=== PATIENT | female | born 1995 ===

== ENCOUNTER → 2024-12-17 01:30 | Outpatient (REF) | payer BC, SELFPAY | LOC: CLAB 01:30 | PROVIDERS: ATTENDING PHYSICIAN Surgery | DX: K60.2 Anal fissure, unspecified (principal) | CPT/HCPCS: 88304 ==

== ENCOUNTER 2025-04-14 06:17 | Day surgery (SDC) | payer BC, SELFPAY ==
[2025-04-14 08:09] VITALS: BMI 29.2
[2025-04-14 08:10] VITALS: BP 131/90; BMI 29.2
[2025-04-14] MEDS: CELEBREX 200 MG PO (08:18)
[2025-04-14] MEDS: TYLENOL 1000 MG PO (08:18)
[2025-04-14] MEDS: NORMOSOL-R/PLASMALYTE-A 1000 IV (08:19)
[2025-04-14 09:55] VITALS: BP 102/55
[2025-04-14 10:00] VITALS: BP 98/60
--- NOTE | 2025-04-14 10:00 | W.IMMPOSTOP ---
Addendum entered and electronically signed by Ashok Soto MD 04/14/25 11:38:
patient and mother was updated in SDS
Original Note:
Surgical Immed Post Op Note
-
Primary Surgeon: Ashok Soto MD
Assisting Surgeon: None
Pre-op Diagnosis: Complex perianal fistula, anal fissure
Post-op Diagnosis: Right gluteal cyst
Procedure Performed: Exam under anesthesia, incision and debridement of right gluteal cyst
Anesthesia Type: Sedation with local
Specimen / Cultures: 1. fistula tract (debrided epithelioma of gluteal cyst) 2. External opening
Estimated Blood Loss: 10 mL
Complications: None
Operative Findings: Scarring noted in the posterior midline in the mid anal canal; no obvious fissure in this location; right gluteal cyst opening in the superior aspect of the buttock, about 8-10 cm from the anal verge; probed and identified a
sizable cyst cavity, no purulence or concern for infection; cyst tracked towards the posterior midline, but there was no patent internal opening identified despite probing for several minutes and using dilute hydrogen peroxide; debrided cyst cavity
and excised the external opening; tucked a corner of gauze within the opening and dressed with gauze and silk tape; no other incidental findings, no masses, no proctitis, no concerning internal hemorrhoids
--- NOTE | 2025-04-14 10:04 | OR.RPT ---
Operative Report
Operative Report
DATE OF OPERATION: 04/14/2025
SURGEON: Ashok Soto MD
PREOPERATIVE DIAGNOSIS: Complex perianal fistula, anal fissure
POSTOPERATIVE DIAGNOSIS: Right gluteal cyst
OPERATION: Exam under anesthesia, incision and debridement of right gluteal cyst, bilateral pudendal nerve block
ASSISTANTS:
1. None
ANESTHESIA: Sedation with local
ESTIMATED BLOOD LOSS: 10 mL
FINDINGS:
1. Scarring in the posterior midline of the mid-anal canal, likely site of prior fissure; no clear evidence of persistent fissure
2. Right gluteal cyst opening with granulation tissue emanating from it; located in the superior aspect of the buttock, about 8-10 cm from the anal verge; no internal opening identified despite probing and dilute hydrogen peroxide
SPECIMENS:
1. Fistula tract (debrided epithelium of gluteal cyst)
2. External opening
DRAINS: None
COMPLICATIONS: None
INDICATIONS: The patient is a 29-year-old female who initially presented with anal fissure as well as cyst in the right buttock. She underwent Botox injection on 12/17/2024 with fistulotomy of fissure�fistula and tag excision. The fissure
improved, but the cyst remained symptomatic. 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 Therefore,
the patient was recommended to have surgery. The operation was discussed with the patient in detail, including the risks, benefits and alternatives. Risks described included, but not limited to bleeding, infection, urinary retention, damage to
nearby structures such as the anal sphincter, inability to identify the internal opening, need for Botox injection, recurrence or failure and anesthetic risks. The patient understood and agreed to proceed. The consent was signed and placed in the
chart.
PROCEDURE IN DETAIL: The patient was taken to the operating room. Sequential compression devices were placed bilaterally. The patient was placed on the operating table in prone position. Sedation was commenced without complication. Two seat belts
were secured around the legs and upper back. The buttocks were taped apart. The perineum was prepped and draped in the usual fashion. A time-out was performed verifying the correct patient, procedure, operative site, positioning, and special
equipment.
Local anesthesia used was a mixture of 30 mL of 0.25% Marcaine with epinephrine, 30mL of 1% lidocaine plain and 0.6 mg of dexamethasone. 40 mL was injected perianally at the beginning of the case. The anorectal exam was performed assessing all four
quadrants of the anal canal using Hill-Ho retractors in progressively increasing size. There was scar tissue noted in the posterior midline of the mid-anal canal, likely representing the location of the previous fissure-fistula. There was no
obvious fissure seen and no internal sphincter muscle exposed. There were no other concerning findings within the anal canal. Specifically, there were no masses, no proctitis and no concerning internal hemorrhoids. There was an anal skin tag in
the anterior midline. The right gluteal cyst had opened previously to the surgery today and there was some granulation tissue noted at the opening. The opening was about 0.5-1 cm in diameter, located in the upper mid buttock, about 8-10 cm from
the anal verge.
Using lacrimal probes, I probed the external opening. There was a substantial subcutaneous cavity in the right buttock. There were areas of the cavity that tracked close to the anal canal, but each area that was palpated had a thick layer of soft
tissue between the anal epithelium and the probe. The thinnest area was identified to be in the posterior midline where the scar tissue was. I suspect that this was likely the site of the internal opening. However, I was not able to identify an
internal opening despite several minutes of probing. I used dilute hydrogen peroxide and injected several times in the external opening with the posterior and right aspect of the anal canal under direct visualization. There was no internal opening
identified with this maneuver. The cavity was irrigated with saline. I elected to proceed with debridement of the cyst cavity and increase the external opening to encourage drainage and wound healing.
Using a curette, I thoroughly debrided the epithelium of the cyst cavity and sent this for pathology. Hemostasis was assured. At this point, anesthesia mention that the patient was more uncomfortable with this maneuver. I performed the pudendal
nerve block using 5 mL of local and injected bilaterally just medial to the ischial tuberosity. The patient comfort improved. Using electrocautery, I excised a rim of the external opening in order to promote additional drainage. Again, hemostasis
was assured. This was sent for pathology as well.
The remaining 10 mL of local were injected around the surgical site and perianally. Hemostasis was reassessed once more using the Hill-Ho and was confirmed. I tucked a corner of gauze within the wound to keep it open. At this point, the
procedure was complete. All needle, sponge and instrument counts were correct. The patient tolerated the procedure well and was transferred to the recovery room in stable condition with gauze dressing in place secured with silk tape.
DICTATED BY: Ashok Soto MD
[2025-04-14 10:15] VITALS: BP 97/58
[2025-04-14 10:30] VITALS: BP 95/63
[2025-04-14 10:45] VITALS: BP 106/65
== END 2025-04-14 11:03 | disposition home or self-care (01) ==
LOC: SDS 06:17
PROVIDERS: ATTENDING PHYSICIAN Surgery
DX: K60.2 Anal fissure, unspecified (principal); K60.329 Anal fistula, complex, unspecified; L92.3 Foreign body granuloma of the skin and subcutaneous tissue
CPT/HCPCS: 46922; 46020; 88304; J0585